=== PATIENT | male | born 1985 | race Caucasian/White ===

== ENCOUNTER 2017-09-01 19:29 | Emergency (ER) | payer OTHER, MEDICAID ==
[~2017-09-01] VITALS: Ht 193 cm; Wt 119.7 kg
[2017-09-01 19:52] VITALS: BP 142/95
== END 2017-09-01 21:55 | disposition home or self-care (01) ==
LOC: ER 19:29
DX: S02.5XXA Fracture of tooth (traumatic), initial encounter for closed fracture (principal); X58.XXXA Exposure to other specified factors, initial encounter; Y93.89 Activity, other specified; Y99.8 Other external cause status; Y92.89 Other specified places as the place of occurrence of the external cause